=== PATIENT | male | born 1990 ===

== ENCOUNTER 2020-02-14 22:14 | Emergency (ER) | payer SELFPAY ==
--- NOTE | ~2020-02-14 | XR_ITS ---
XR abdomen/kub 1V 02/14/2020 23:23 INDICATION: Lower abdominal pain TECHNIQUE: KUB COMPARISON: 06/09/2008 FINDINGS: Bowel gas pattern is normal. There is no evidence of free air, mass, organomegaly, ascites or obstruction. No abnormal calculi are seen. The bones appear intact. IMPRESSION: 1: No acute abdominal abnormality identified. Reviewed, dictated and finalized at location A. TRUCTION MANAGEMENT ASSISTANT
--- NOTE | ~2020-02-14 | CT_ITS ---
EXAMINATION: CT abdomen pelvis w con DATE: 02/15/2020 00:36 INDICATION: Lower abdominal pain TECHNIQUE: Computed tomography (CT) of the abdomen and pelvis was performed with 100 cc Omnipaque 350 intravenous contrast. The dose-length product was 356.17 mGy-cm. Automated exposure control and iter ative reconstruction technique were employed. COMPARISON: CT dated 10/12/2010. FINDINGS: Lung bases unremarkable. Heart size normal. No significant pleural or pericardial effusion. There is possible mild gastric wall thickening versus underdistention. Nonobstructive bowel gas patte rn. No significant vascular abnormality. No lymphadenopathy. Small low-density lesion right hepatic lobe, likely benign cysts, although too small to characterize. The spleen, pancreas, adrenal glands and kidneys are unremarkable. Normal appendix. No free air or f ree fluid. No acute osseous abnormality. IMPRESSION: 1. Possible mild gastric wall thickening versus underdistention. Consider gastritis in the appropriat e clinical setting. Reviewed, dictated and finalized at location A. K STUDIES PROFESSOR IMPRESSION: 1. Possible mild gastric wall thickening versus underdistention. Consider gastr itis in the appropriate clinical setting.
[2020-02-14 22:20] VITALS: BP 163/98; PULSE 72; RESP 18; TEMP 36.3; O2SAT 100
[2020-02-14 23:06] LABS: Basophils Absolute Auto 0.1 K/mm3 (0.0-0.1); Basophils Percent Auto 0.7 % (0.2-1.2); Eosinophils Absolute Auto 0.1 K/mm3 (0-0.3); Eosinophils Percent Auto 1.1 % (0-4.4); Hematocrit 45.8 % (42.0-52.0); Hemoglobin 16.1 g/dL (14.0-18.0); Immature Granulocyte Absolute 0.09 K/mm3 (0.00-0.031); Immature Granulocyte Percent A 0.8 % (0-0.5); Lymphocytes Absolute Auto 1.73 K/mm3 (0.9-3.2); Lymphocytes Percent Auto 14.4 % (18.3-44.2); Mean Corpuscular HGB Conc 35.2 g/dl (32-36); Mean Corpuscular Hemoglobin 31.2 pg (26-34); Mean Corpuscular Volume 88.8 fl (80-100); Mean Platelet Volume 9.1 fl (7.4-10.4); Monocytes Absolute Auto 1.2 K/mm3 (0.1-0.6); Monocytes Percent Auto 10.2 % (2.6-8.5); Neutrophils Absolute Auto 8.7 K/mm3 (1.3-6.7); Neutrophils Percent Auto 72.8 % (45.5-73.1); Platelet Count Result 275 k/mm3 (150-375); Red Blood Count 5.16 M/mm3 (4.6-6.20); Red Cell Distribution Width 11.9 % (11.5-14.5)
--- NOTE | 2020-02-14 23:12 | ED.ABDPAIN ---
HPI - Abdominal Pain General Chief Complaint: Abdominal Pain Stated Complaint: abd pain Time Seen by Provider: 02/14/20 23:04 History of Present Illness HPI narrative: 29 yo male presents to the ED for abdominal pain. He reports constant cramp-like abdomainl apin for the past 2 days. Started after having anal sex for the first time. He has had assoicated nausea, vomitin, diarrhea. He tried jogging to releive the pain without success. No fever, chills. Related Data Home Medications Medication Instructions Recorded Confirmed No Home Medications 02/14/20 02/14/20 Allergies Allergy/AdvReac Type Severity Reaction Status Date / Time No Known Allergies Allergy Unknown Verified 10/12/10 13:22 Review of Systems Review of Systems: All systems reviewed & are unremarkable except as noted in HPI and below Constitutional: Constitutional: Denies chills and Denies fever(s) Cardiovascular: Cardiovascular: Denies chest pain Respiratory: Respiratory: Denies dyspnea Gastrointestinal: Gastrointestinal: Reports abdominal pain, Reports diarrhea, Reports nausea and Reports vomiting Genitourinary: Genitourinary: Denies hematuria and Denies dysuria Neurologic: Denies dizziness and Denies weakness [facility] Past Medical History Medical History (Updated 02/20/20 @ 02:04 by Jovan Raza MD) Healthy adult Family History Family History (Updated 11/06/13 @ 07:13 by DOCTOR UNKNOWN) Father Family history of premature coronary heart disease Social History Social History Smoking status: Never smoker Smoking end date: 03/12/09 Alcohol intake: current Exam Const: General: healthy appearing, no acute distress and alert Orientation/consciousness: patient oriented x3 HENMT: Head: normal to inspection Neck: Neck: normal visual inspection and no lymphadenopathy Chest: Chest palpation & inspection: no tenderness Resp: Effort & Inspection: normal respiratory effort Auscultation: clear to auscultation bilaterally, no rales, no rhonchi and no wheezes Cardio: Jugular venous distension: no JVD Rate: regular rate Rhythm: regular rhythm Heart sounds: no murmurs GI: Inspection: non-distended GI Palp: Yes Soft to palpation, Yes Tenderness to palpation present (GI) (periumbilical), No Guarding due to palpation present (GI) and No Rebound tenderness present Auscultation: Hyperactive bowel sounds present Skin: General skin exam: normal color Neuro: General: patient oriented x3 and moves all extremities Speech: normal speech Extrem: General: no edema Psych: Appearance: well kempt Affect: normal affect Course Vital Signs Vital signs: Vital Signs Temperature 36.3 C L 02/14/20 22:20 Pulse Rate 72 02/14/20 22:20 Respiratory Rate 18 02/14/20 22:20 Blood Pressure 163/98 H 02/14/20 22:20 Pulse Oximetry 100 02/14/20 22:20 Temperature 36.3 C L 02/14/20 22:20 Pulse Rate 78 02/15/20 02:57 Respiratory Rate 20 02/15/20 02:57 Blood Pressure 134/89 02/15/20 02:57 Pulse Oximetry 97 02/15/20 02:57 MDM - Abdominal Pain MDM Narrative Medical decision making narrative: Labs and imaging reassuring. Pain improved with dicyclomine Differential Diagnosis Differential diagnosis: Likely acute appendicitis, calculus of kidney, constipation, diverticulitis, gastroenteritis, pancreatitis, small bowel obstruction and other (perforation) Medical Records Attestation: I reviewed the patient's medical records. Lab Data Attestation: I reviewed the patient's lab results. Result diagrams: 02/14/20 22:49 02/14/20 22:49 Labs: Lab Results 02/14/20 02/14/20 02/15/20 Range/Units 22:49 22:49 00:07 WBC 12.0 H (4.5-10.0) K/mm3 RBC 5.16 (4.6-6.20) M/mm3 Hgb 16.1 (14.0-18.0) g/dL Hct 45.8 (42.0-52.0) % MCV 88.8 (80-100) fl MCH 31.2 (26-34) pg MCHC 35.2 (32-36) g/dl RDW 11.9 (11.5-14.5) % Plt Count 275 (150-375) k/mm3 MPV 9.1
[2020-02-14 23:18] LABS: Alanine Aminotransferase 32 U/L (4-50); Albumin Level 4.2 g/dL (3.5-5.1); Alkaline Phosphatase 77 U/L (38-126); Anion Gap 9 mmol/L (8-16); Aspartate Amino Transferase 50 U/L (17-59); Bilirubin,Total 0.4 mg/dL (0.2-1.3); Blood Urea Nitrogen 4 mg/dL (9-20); Carbon Dioxide 26 mmol/L (22-30); Chloride 101 mmol/L (98-107); Estimated CRCL calculation 124 ml/min; Estimated Glomerular Filt Rate > 60; Glucose 106 mg/dL (75-110); Lipase 80 U/L (23-300); Potassium 3.9 mmol/L (3.4-5.0); Sodium 136 mmol/L (137-145)
[2020-02-14] MEDS: SODIUM CHLORIDE 0.9% IV 1,000 ML 999 ML IV CONT (23:52)
[2020-02-14] MEDS: DICYCLOMINE HCL INJ 20 MG/2 ML VIAL IM (23:53)
[2020-02-15 00:16] LABS: Add Urine Microscopic? YES; Appearance Urine Clear (Clear); Bilirubin Urine Negative (Negative); Blood Urine Negative (Negative); Color Urine Straw (Yellow); Glucose Urine UA Negative (Negative); Ketones Urine 1+ mg/dL (Negative); Leukocyte Esterase Ur Negative LEU/UL (Negative); Mucus Urine Rare /lpf; Nitrate Urine Negative (Negative); Protein Urine Negative (Negative); RBC Urine 0-2 /hpf (0-2); Specific Grav Ur 1.011 (1.001-1.035); Urobilinogen Urine Negative mg/dL (<2.0); WBC Urine 0-3 /hpf
[2020-02-15 01:05] VITALS: BP 139/90; PULSE 52; RESP 18; O2SAT 96
[2020-02-15] MEDS: KETOROLAC 30 MG/ML VIAL (*BKC) IV PUSH (02:18)
[2020-02-15 02:57] VITALS: BP 134/89; PULSE 78; RESP 20; O2SAT 97
== END 2020-02-15 02:59 | disposition home or self-care (01) ==
PROVIDERS: Emergency Provider Emergency Medicine
DX: R10.30 Lower abdominal pain, unspecified (principal)
CPT/HCPCS: 36415; 74018; 74177; 80053; 81001; 83690; 85025; 96360; 96372; 96374; 99284; J0500; J1885; J7030; Q9967

== ENCOUNTER 2022-02-03 20:04 | Emergency (ER) | payer OTHER, SELFPAY ==
--- NOTE | 2022-02-03 20:19 | ECG_ITS ---
Measurements Intervals [place] Rate: 89 P: 25 OR: 124 QRS: 57 QRSD: 98 T: 56 QT: 338 QTc: 413 Interpretive Statements SINUS RHYTHM NORMAL ECG NO PREVIOUS ECG AVAILABLE FOR COMPARISON Electronically Signed On 02-03-2022 22:25:25 DIALYSIS BIOMED TECHNICIAN by Ismael Puente D.O.
[2022-02-03 20:36] LABS: Basophils Absolute Auto 0.1 K/mm3 (0.0-0.1); Basophils Percent Auto 0.9 % (0.2-1.2); Eosinophils Absolute Auto 0.2 K/mm3 (0-0.3); Eosinophils Percent Auto 2.2 % (0-4.4); Hematocrit 43.9 % (42.0-52.0); Immature Granulocyte Absolute 0.04 K/mm3 (0.00-0.031); Immature Granulocyte Percent A 0.5 % (0-0.5); Lymphocytes Absolute Auto 2.36 K/mm3 (0.9-3.2); Lymphocytes Percent Auto 27.9 % (18.3-44.2); Mean Corpuscular HGB Conc 34.2 g/dl (32-36); Mean Corpuscular Hemoglobin 30.6 pg (26-34); Mean Corpuscular Volume 89.6 fl (80-100); Mean Platelet Volume 8.8 fl (7.4-10.4); Monocytes Absolute Auto 0.9 K/mm3 (0.1-0.6); Monocytes Percent Auto 10.7 % (2.6-8.5); Neutrophils Absolute Auto 4.9 K/mm3 (1.3-6.7); Neutrophils Percent Auto 57.8 % (45.5-73.1); Platelet Count Result 253 k/mm3 (150-375); Red Cell Distribution Width 12.6 % (11.5-14.5); White Blood Count 8.5 K/mm3 (4.5-10.0)
[2022-02-03 20:47] LABS: Alanine Aminotransferase 33 U/L (6-50); Albumin Level 4.4 g/dL (3.5-5.1); Alkaline Phosphatase 80 U/L (38-126); Anion Gap 8 mmol/L (8-16); Aspartate Amino Transferase 44 U/L (17-59); Bilirubin,Total 0.3 mg/dL (0.2-1.3); Blood Urea Nitrogen 9 mg/dL (9-20); Calcium 8.9 mg/dL (8.4-10.2); Carbon Dioxide 28 mmol/L (22-30); Chloride 105 mmol/L (98-107); Estimated Glomerular Filt Rate > 60; Glucose 119 mg/dL (65-110); Potassium 3.9 mmol/L (3.4-5.0); Sodium 141 mmol/L (137-145)
[2022-02-03 20:59] VITALS: BP 137/81; PULSE 77; RESP 14; TEMP 37.4; O2SAT 98
== END 2022-02-03 20:26 | disposition left against medical advice (07) ==
PROVIDERS: Emergency Provider Emergency Medicine
DX: R00.0 Tachycardia, unspecified (principal)
CPT/HCPCS: 36415; 80053; 85025; 93005; 99199